=== PATIENT | female | born 1970 | race Caucasian/White ===

== ENCOUNTER 2019-01-02 10:28 | Day surgery (SDC) ==
[~2019-01-02 10:28] MED LIST: DIPRIVAN 1% ONE; XYLOCAINE-MPF 2% ONE
[2019-01-02] MEDS ORDERED: KEFZOL 1 GM/D5W 2 GM/100 ML IVPB ONE (11:14)
[2019-01-02] MEDS ORDERED: LR 1,000 ML ONE ×2 (11:14→14:50)
[2019-01-02] MEDS ORDERED: VERSED ONE (11:36)
[2019-01-02 11:45] LABS: HEMATOCRIT 40.5 % (37.0-47.0); HEMOGLOBIN 12.8 g/dL (12.0-16.0); MCH 28.8 PG (27-31); MCHC 31.6 g/dL (33-37); MCV 91.2 FL (81-99); MPV 10.2 FL (7.4-10.4); RBC 4.44 XMIL (4.2-5.4); WBC 8.45 X1000 (4.8-10.8)
[2019-01-02] MEDS ORDERED: REGLAN ONE (11:51)
[2019-01-02] MEDS ORDERED: NEOSTIGMINE ONE (11:52)
[2019-01-02] MEDS ORDERED: ZOFRAN ONE ×2 (12:23)
[2019-01-02] MEDS ORDERED: DECADRON ONE ×2 (12:23)
[2019-01-02] MEDS ORDERED: AK-FLUOR ONE (12:48)
[2019-01-02] MEDS ORDERED: EPHEDRINE ONE (12:51)
[2019-01-02 14:56] LABS: AGAP 17; BUN 7 mg/dL (8-22); CALCIUM 9.3 mg/dL (8.8-10.2); CHLORIDE 101 mmol/L (98-107); COSMO 272; CREATININE 0.6 mg/dL (0.5-0.9); ESTIMATED GFR > 60; GLUCOSE 175 mg/dL (70-104); SODIUM 135 mmol/L (136-145); TCO2 17 mmol/L (25-35)
[2019-01-02] MEDS ORDERED: DUONEB (A & A) INH PRN (15:36)
[2019-01-02] MEDS ORDERED: MORPHINE IV PRN (15:36)
[2019-01-02] MEDS ORDERED: ZOFRAN IV PRN (15:45)
[2019-01-02] MEDS ORDERED: NORCO-7.5 PO PRN (15:45)
[2019-01-02] MEDS ORDERED: LABETALOL IV PRN (15:45)
[2019-01-02] MEDS ORDERED: FLEXERIL PO PRN (16:42)
[2019-01-02] MEDS: LR 1,000 ML IV SCH (16:48)
[2019-01-02] MEDS: NEURONTIN PO SCH ×2 (17:59→20:04)
[2019-01-02] MEDS: REGLAN PO SCH ×2 (17:59→20:04)
[2019-01-02] MEDS: PERIDEX MT SCH (20:04)
[2019-01-02] MEDS: KEFZOL 1 GM/D5W 1 GM/50 ML IVPB IV SCH (20:04)
[2019-01-02] MEDS: COLACE PO SCH (20:05)
[2019-01-02] MEDS: MS CONTIN PO SCH (20:05)
[2019-01-02 21:38] LABS: URINE SOURCE CATH
[2019-01-02 21:41] LABS: BILIRUBIN URINE NEGATIVE (NEGATIVE); BLOOD URINE MODERATE (NEGATIVE); COLOR YELLOW; GLUCOSE URINE >1000 mg/dL (NEGATIVE); KETONE URINE TRACE mg/dL (NEGATIVE); LEUKOCYTES URINE LARGE (NEGATIVE); NITRITE URINE NEGATIVE (NEGATIVE); PH URINE 7.5; PROTEIN URINE TRACE mg/dL (NEGATIVE); SP GRAVITY URINE 1.014; TURBIDITY URINE HAZY (CLEAR); UROBILINOGEN URINE NORMAL (NORMAL)
[2019-01-02 21:45] LABS: UR EPITHELIAL CELLS <10 /HPF (<10); URINE BACTERIA NEGATIVE /HPF; URINE RBC TNTC /HPF (<10); URINE WBC TNTC /HPF (<10)
[2019-01-02 21:50] LABS: URINE YEAST NONE SEEN
[2019-01-03] MEDS: KEFZOL 1 GM/D5W 1 GM/50 ML IVPB IV SCH (03:35)
[2019-01-03] MEDS: LR 1,000 ML IV SCH ×2 (03:38→05:57)
[2019-01-03 07:20] LABS: HEMATOCRIT 34.7 % (37.0-47.0); MCHC 31.7 g/dL (33-37); MCV 91.6 FL (81-99); MPV 8.6 FL (7.4-10.4); RBC 3.79 XMIL (4.2-5.4); RDW 15.3 % (11.5-14.5); WBC 9.64 X1000 (4.8-10.8)
[2019-01-03 07:54] VITALS: BP 142/63
[2019-01-03 07:57] LABS: AGAP 12; BUN 7 mg/dL (8-22); CALCIUM 8.8 mg/dL (8.8-10.2); CHLORIDE 98 mmol/L (98-107); COSMO 284; CREATININE 0.6 mg/dL (0.5-0.9); ESTIMATED GFR > 60; GLUCOSE 285 mg/dL (70-104); SODIUM 138 mmol/L (136-145); TCO2 28 mmol/L (25-35)
--- NOTE | 2019-01-03 08:09 | PROGRESS NOTE ---
DATE: 01/03/2019 SUBJECTIVE: Postoperative day 1 from transurethral resection of bladder tumor, evacuation of bladder debris and left retrograde pyelogram. The patient did well overnight. Her catheter has been draining clear yellow urine. She denies any pain, fevers, or chills. Vital signs have all been stable. She is tolerating a diet. OBJECTIVE: Vital Signs: Temperature 98.4 degrees, heart rate 78, blood pressure 136/64, and oxygen saturation 98% on room air. General: No acute distress. Comfortably in bed. Alert and oriented x3. Respiratory: Good respiratory effort without audible wheezing or rales. Abdomen: Soft, nontender, and nondistended. : No suprapubic tenderness. No CVA tenderness. Urethral catheter in place draining clear yellow urine. LABORATORY: White blood cell count 9.6, hemoglobin 11, hematocrit 34.7, and platelets 350,000. ASSESSMENT AND PLAN: Ms. Kelley is a 48-year-old who is postop day 1 from transurethral resection of bladder tumor, evacuation of bladder debris, and left retrograde pyelogram. The patient underwent cystoscopy yesterday which is very abnormal with what appears to be tumor present at the bladder neck. Whether this is bladder mass versus urethral mass versus cervical cancer, I am uncertain. I obtained multiple resections swipes to obtain a pathologic diagnosis which was sent to pathology. We talked with her about further management. If this is bladder cancer, I think this is likely muscle invasive on appearance as it is quite abnormal. The rest of the patient's bladder had multiple trabeculations and small cellules as well as a very abnormal lining with a scaly like appearance. She has had prior treatment in her bladder which she is uncertain what this was. It is uncertain whether this may have led to the appearance we visualized yesterday in the operating room. The patient has a Beebe catheter in place draining clear yellow urine. The patient's white blood cell count is normal today. I was able to perform a left retrograde pyelogram yesterday but unable on the right side as it was completely obstructed. We tried to use fluorescein dye to visualize the right side, but never was able to see the ureteral orifice after looking for over an hour. The patient had right hydronephrosis on preoperative CT scan. In talking with her yesterday regarding management of this, I recommend right nephrostomy tube placement. The patient would like to hold off on any procedures at this time. I think ultimately she will need a right nephrostomy tube and possible internalization of the stent. I talked with her regarding this. The patient will return to clinic next week to discuss pathology, and would again discuss undergoing nephrostomy tube placement. Clinically, patient seems to be improving. I think she can go home later today. We will plan for close follow-up and discussion of pathology. cc: Ridge Kincaid MD MTDD
[2019-01-03] MEDS ORDERED: ACTOS PO SCH (09:00)
[2019-01-03] MEDS ORDERED: LIPITOR PO SCH (09:00)
[2019-01-03] MEDS ORDERED: GLUCOTROL PO SCH (09:00)
[2019-01-03] MEDS ORDERED: PRISTIQ ER PO SCH (09:00)
[2019-01-03] MEDS: COLACE PO SCH (09:08)
[2019-01-03] MEDS: NEURONTIN PO SCH (09:08)
[2019-01-03] MEDS: PERIDEX MT SCH (09:08)
[2019-01-03] MEDS: REGLAN PO SCH (09:08)
[2019-01-03] MEDS: MS CONTIN PO SCH (09:09)
--- NOTE | 2019-01-03 11:00 | Diag Imaging Result Doc PS360 ---
EXAM: RETROGRADES 2 OR 3 FILMS 01/02/2019 HISTORY: LEFT RETROGRADE TECHNIQUE: Seven images, 0.13 mGy, nine seconds fluoroscopy time. COMMENT: Injection of the left ureteral orifice demonstrates the lower ureter to a point about the level of the sacral dandre where there is a collection of contrast which may represent the renal pelvis of an ectopic kidney. The calyces are not well demonstrated. IMPRESSION: Ectopic left kidney. Electronically signed by Micheal Gee 01/03/2019 10:58 AM
--- NOTE | 2019-01-05 11:50 | OPERATIVE NOTE ---
PROCEDURE DATE: 01/02/2019 PREOPERATIVE DIAGNOSES: 1. Urinary retention. 2. Bladder mass. 3. Urinary debris. POSTOPERATIVE DIAGNOSES: 1. Urinary retention. 2. Bladder mass. 3. Urinary debris. PROCEDURE PERFORMED: 1. Cystoscopy with evacuation of bladder debris. 2. Left retrograde pyelogram. 3. Transurethral resection of bladder tumor greater than 5 cm. SURGEON: Ridge Kincaid MD. DENTAL MOLD MAKER: None. COMPLICATIONS: None. BLOOD LOSS: 5 mL. DRAINS: A 20 inch Beebe catheter. SPECIMENS REMOVED: 1. Bladder debris. 2. Bladder resection. ANESTHESIA: LMA. INDICATIONS FOR PROCEDURE: Ms. Kelley is a 48-year-old who presented to [facility] complaining of urinary incontinence. The patient had a postvoid residual obtained which returned greater than 600mL. The patient had urethral catheter in place draining clear yellow urine. However, she began having a large amount of debris that clogged her catheter requiring multiple catheterization flushes in the office. The decision was made to perform cystoscopy on Sunday due to recurrent difficulty with catheter due to what appeared to be debris bladder. On inspection of the bladder, there was large whitish material present free-floating in the bladder. Uncertain if this was mucus, fungus balls, or bland clot of unknown origin. However, at the base of the bladder, there was very erythematous area near the bladder neck. This was covered with this material and concerning for possible malignancy. I was unable to visualize either ureteral orifice. The patient had urine culture growing Aerococcus, but due to her episodes with her catheter being clogged, the decision was made to perform CT scan and schedule for cystoscopy with clot evacuation and possible bladder biopsies. CT scan showed bladder distention and right hydronephrosis as well as pelvic left kidney. Risks, benefits, and alternatives to procedure were discussed including infection, bleeding, damage to surrounding structures, need for secondary procedures, risk of fistula formation, as well as worsening urinary incontinence. The patient will need to have indwelling catheter in after the procedure. All of this was discussed and she elected to proceed. DESCRIPTION OF PROCEDURE: Informed consent was obtained, the patient was brought to the operating room and placed on the operating table in supine position. The patient received preoperative antibiotics and underwent LMA placement. She was positioned to a dorsal lithotomy position, was prepped and draped in usual fashion. A preoperative time-out was performed with all parties in agreement including anesthesia, surgical, and nursing staff. At which point, I inserted a 21- Dutch cystourethroscope through the urethra. Once inside the bladder, the patient's bladder was very abnormal. There was some trabeculation as well as small cellules, likely from chronic retention. A large amount of whitish debris was seen throughout the bladder. Some of these areas were quite large, several cm in size, some quite firm as well and some white areas were actually adherent to the wall of the bladder, both at the base of the bladder as well as one on the right side of the bladder that protruded out from a small erythematous area. I was able to break these areas up slightly, but they would not drain through her cystoscope. Attempt was made to place the resectoscope element. The scope was able to pass into the urethra easily and then removed. A large amount of this material required cauterization to even cut the material into smaller pieces that could be extracted as well as grasping them within a loop and retrieving them. An Elek was used to irrigate the material out of her bladder. A total volume of this debris was greater than 5 cm of material that was extracted Once all of this was removed, I had better visualization of the actual mucosa of the bladder. There was an abnormal appearance throughout, but on the left lateral wall near the posterior bladder that almost looked like silver nitrate effect. There was a scaly appearance to almost the entirety of the bladder mucosa, but at the base, near bladder neck there was a concerning malignancy seen. This was right where the urethra and the bladder come together and large bladder mass was seen. No right ureteral orifice was visualized nor was the left ureteral orifice visualized. I began resecting and ultimately was able to visualize the left ureteral orifice along the trigone. I did give some fluorescein dye at this point to try to visualize both sides. I gave 0.5 mL and had good drainage from the left side. However, the right side was never truly visualized. I attempted to resect the tumor down to the base in order to get a good pathologic diagnosis with the largest portion of the tumor present on the right base of the bladder. I was uncertain what this arises from, whether this is true bladder malignancy versus cervical cancer due to its location at the base. I performed pelvic exam prior to surgery and did not feel any obvious cervical masses or firmness. Once this tumor was resected, all of the specimens were removed and good cauterization was obtained. I could see the trigone coming from the left to the right side. However, there was no obvious area of drainage from the fluorescein dye from the right-sided ureteral orifice. The cystourethroscope was then reinserted and an ureteral catheter was able to be cannulized into the left ureteral orifice and a retrograde pyelogram was performed. Pyelogram showed the patient's pelvic kidney with no evidence of obstruction. It was slightly malrotated and very close to the bladder. No obvious filling defects were seen and good drainage was seen from the collecting system afterward. The patient's bladder was cycled multiple times and attention was placed to the right side. I spent approximately 45 minutes trying to visualize the right ureteral orifice and at the end of the procedure was still unable to see anything extruding from the right side. Hemostasis was ensured. All specimens were removed. The patient's bladder was left full and a 20-Dutch Beebe catheter was inserted through the urethra and into the bladder, inflated with 10 mL of sterile water and placed to gravity drainage. DISPOSITION: The patient will be admitted to the hospital overnight for observation and discharge tomorrow. cc: Ridge Kincaid MD MTDD
== END 2019-01-03 09:51 | disposition home or self-care (01) ==
LOC: OR 10:28 → 4N 10:28 → OR 01-03 09:51
PROVIDERS: ATTEND Urology